=== PATIENT | male | born 1960 | race Caucasian/White ===

== ENCOUNTER → 2020-07-18 | Outpatient (CLI) | payer BC, MEDICARE | LOC: KOH-I 07-16 09:00 | DX: Z12.2 Encounter for screening for malignant neoplasm of respiratory organs (principal); Z87.891 Personal history of nicotine dependence | CPT/HCPCS: 71271 ==

== ENCOUNTER 2022-01-21 17:42 | Inpatient (IN) | payer MEDICARE, OTHER ==
[~2022-01-21] VITALS: Ht 154.9 cm; Wt 154.2 kg
[2022-01-21 23:21] LABS: HEMOGLOBIN 15.7 gm/dl (14.0-17.5); RED BLOOD COUNT 4.97 M/UL (4.20-5.50); WHITE BLOOD COUNT 7.4 K/UL (4.5-11.0)
[2022-01-22] MEDS ORDERED: DICLOFENAC SODI75 MG PO (12:45)
[2022-01-22] MEDS ORDERED: ONDANSETRON HCL4 MG PO (12:45)
[2022-01-22] MEDS ORDERED: METOPROLOL SUCC50 MG PO (12:46)
[2022-01-22] MEDS ORDERED: CYCLOBENZAPRINE10 MG PO (12:47)
[2022-01-22] MEDS ORDERED: SPIRONOLACTONE25 MG PO (12:47)
[2022-01-22] MEDS ORDERED: PROTONIX40 MG PO (12:47)
[2022-01-22] MEDS ORDERED: LOSARTAN POTAS100 MG PO (12:48)
[2022-01-22] MEDS ORDERED: BUMETANIDE1 MG PO (12:49)
[2022-01-22] MEDS ORDERED: HYDROCODON-ACE1 EAC6 PO (12:50)
[2022-01-22] MEDS ORDERED: ROBAXIN 750 MG750 MG PO (12:51)
[2022-01-23 04:29] LABS: HEMOGLOBIN 14.5 gm/dl (14.0-17.5); RED BLOOD COUNT 4.76 M/UL (4.20-5.50); WHITE BLOOD COUNT 5.9 K/UL (4.5-11.0)
[2022-01-23 04:42] LABS: BUN/CREATININE RATIO 14 (0-10)
[2022-01-24 05:59] LABS: BUN/CREATININE RATIO 13 (0-10)
[2022-01-24] MEDS ORDERED: LEVOFLOXACIN750 MG PO (11:58)
[2022-01-24] MEDS ORDERED: ZYVOX600 MG PO (11:58)
== END 2022-01-24 14:05 | disposition home or self-care (01) | DRG 603 ==
LOC: ER1 17:42 → M/S 01-22 00:49 → CDU 01-22 00:49 → M/S 01-22 07:47
PROVIDERS: Emergency Medicine; ADMIT Internal Medicine
DX: L03.116 Cellulitis of left lower limb (principal); N17.9 Acute kidney failure, unspecified; I13.0 Hypertensive heart and chronic kidney disease with heart failure and stage 1 through stage 4 chronic kidney disease, or unspecified chronic kidney disease; Z68.44 Body mass index [BMI] 60.0-69.9, adult; M19.91 Primary osteoarthritis, unspecified site; R73.9 Hyperglycemia, unspecified; N18.9 Chronic kidney disease, unspecified; E66.01 Morbid (severe) obesity due to excess calories; Z20.822 Contact with and (suspected) exposure to COVID-19; I50.9 Heart failure, unspecified; Z88.0 Allergy status to penicillin; Z99.81 Dependence on supplemental oxygen; Z80.52 Family history of malignant neoplasm of bladder; Z87.891 Personal history of nicotine dependence
CPT/HCPCS: 36415; 71045; 73590; 80048; 80053; 80202; 81001; 83036; 83605; 83735; 84100; 85025; 86140; 87040; 87086; 93005; 93971; 96365; 96366; 96376; 99285; J1650; J1940; J2543; J3370; J7070; U0002